=== PATIENT | male | born 2005 | race Caucasian/White ===

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

== ENCOUNTER 2024-04-04 09:40 | Emergency (ER) | payer OTHER ==
[~2024-04-04] VITALS: Ht 177.8 cm; Wt 68.2 kg
[2024-04-04 09:45] VITALS: TEMP 98.3
[2024-04-04] MEDS: ACETAMINOPHEN 325 MG TABLET PO ONE (10:13)
[2024-04-04 10:14] LABS: BASOPHILS % (AUTO) 0.5 % (0.0-2.0); EOSINOPHILS % (AUTO) 4.5 % (1.0-6.0); HEMATOCRIT 48.8 % (41-53); HEMOGLOBIN 16.8 g/dL (13.5-17.5); LYMPHOCYTES # (AUTO) 1.9 K/uL (1.0-4.8); LYMPHOCYTES % (AUTO) 26.7 % (22.0-44.0); MEAN CORPUSCULAR HEMOGLOBIN 30.2 pg (26.0-34.0); MEAN CORPUSCULAR HGB CONC 34.5 G/dL (31.0-37.0); MEAN CORPUSCULAR VOLUME 88 fL (80-100); MONOCYTES # (AUTO) 0.9 K/uL (0.1-1.0); MONOCYTES % (AUTO) 12.6 % (2.0-9.0); NEUTROPHILS # (AUTO) 3.9 K/uL (1.8-7.7); NEUTROPHILS % (AUTO) 55.7 % (40.0-70.0); PLATELET COUNT (AUTO) 251 K/uL (150-450); RED BLOOD CELL COUNT(AUTO) 5.58 MIL/uL (4.50-5.90); RED CELL DISTRIBUTION WIDTH 13.1 % (11.5-14.5); WHITE BLOOD COUNT (AUTO) 7.1 K/uL (4.5-11.0)
[2024-04-04 10:46] LABS: ANION GAP 3 mmol/L (8-16); CALCIUM, TOTAL 9.5 mg/dL (8.8-10.5); CARBON DIOXIDE 32 mmol/L (22-29); CHLORIDE 102 mmol/L (98-107); CREATININE 0.84 mg/dL (0.60-1.30); GLOMERULAR FILTR. RATE CALC > 60 mL/min (>60); GLUCOSE,RANDOM 106 mg/dL (70-110); SODIUM SERUM 137 mmol/L (136-145); UREA NITROGEN, BLOOD 10 mg/dL (7-18)
[2024-04-04 10:53] LABS: TROPONIN I-HIGH SENSITIVITY 15 ng/L (<76)
[2024-04-04] MEDS ORDERED: ACET-2247 PO (11:03)
[2024-04-04] MEDS ORDERED: IBUP-1492 PO (11:03)
[2024-04-04 11:15] VITALS: BP 133/76; PULSE 79; RESP 18; O2SAT 99
== END 2024-04-04 12:24 | disposition home or self-care (01) ==
LOC: EMS 09:40
DX: R51.9 Headache, unspecified (principal)
CPT/HCPCS: 70450; 80048; 84484; 85025; 93005; 99284

== ENCOUNTER 2024-12-31 19:26 | Emergency (ER) | payer OTHER ==
[~2024-12-31] VITALS: Ht 180.3 cm; Wt 54.1 kg
[~2024-12-31 19:26] MED LIST: ACET-2247 PO; IBUP-1492 PO
[2024-12-31 19:30] VITALS: BP 142/82; PULSE 89; RESP 18; TEMP 98.4; O2SAT 98
[2024-12-31 19:48] LABS: COVID AG,FIA SOURCE NASAL SWAB
[2024-12-31 20:37] LABS: SARS-COV2 (COVID) ANTIGEN,FIA Negative (Negative)
[2024-12-31 20:38] LABS: INFLUENZA TYPE A NEGATIVE FOR TYPE A (NEGATIVE); INFLUENZA TYPE B NEGATIVE FOR TYPE B (NEGATIVE)
== END 2024-12-31 22:39 | disposition left against medical advice (07) ==
LOC: EMS 19:26
DX: R51.9 Headache, unspecified (principal); Z20.822 Contact with and (suspected) exposure to COVID-19; Z53.21 Procedure and treatment not carried out due to patient leaving prior to being seen by health care provider
CPT/HCPCS: 87804